=== PATIENT | male | born 2000 | race Two or more races ===

== ENCOUNTER 2021-05-05 05:10 | Emergency (ER) | payer OTHER ==
[~2021-05-05] VITALS: Ht 165.1 cm; Wt 2.4 kg
[2021-05-05] MEDS ORDERED: ACCU-CHEK COMFORT CURVE STRIP VI ONE (05:45)
[2021-05-05] MEDS ORDERED: MIDAZOLAM HCL 2MG/2ML 2ml VIAL (1mg/ml) IM ONE (06:15)
[2021-05-05 07:00] LABS: Basophils # (auto) 0.1 10 ^3/uL (0-0.2); Basophils % (auto) 0.7 % (0.0-2.0); Eosinophils # (auto) 0 10 ^3/uL (0-0.8); Eosinophils % (auto) 0.1 % (0.0-7.0); Hematocrit 45.5 % (41.0-53.0); Hemoglobin 15.7 g/dL (13.5-17.5); Lymphocytes # (auto) 0.8 10 ^3/uL (0.4-5.4); Lymphocytes % (auto) 5.9 % (10.0-50.0); Mean Corpuscular Hemoglobin 30.5 pg (28.0-32.0); Mean Corpuscular Hgb Conc. 34.6 g/dL (32.0-36.0); Mean Corpuscular Volume 88.1 fL (80.0-100.0); Monocytes # (auto) 0.6 10 ^3/uL (0-1.3); Monocytes % (auto) 4.3 % (0.0-12.0); Neutrophils # (auto) 12.7 10 ^3/uL (1.6-8.6); Red Blood Cells 5.16 10^6/uL (4.5-5.90); Red Cell Distribution Width 12.9 % (11.8-14.3); White Blood Cell 14.3 10^3/uL (4.4-10.8)
[2021-05-05 07:28] LABS: Calcium 8.4 mg/dL (8.5-10.1); Potassium 3.9 mmol/L (3.5-5.1)
[2021-05-05 07:32] LABS: BUN/Creatinine Ratio 10.4; Bilirubin, Total 0.4 mg/dL (0.2-1.0); Total Protein 7.8 g/dL (6.4-8.2)
[2021-05-05] MEDS ORDERED: SODIUM CHLORIDE 0.9% 1,000 ML IV ONE ×3 (07:45→17:30)
[2021-05-05 08:43] LABS: Lactic Acid w/Reflex 2.5 mmol/L (0.4-2.0)
[2021-05-05] MEDS ORDERED: ONDANSETRON HCL 4 MG/2 ML VIAL IV ONE (09:30)
[2021-05-05 10:16] LABS: Amphetamine Screen, Urine NEGATIVE (NEGATIVE); Barbiturate Scree,Urine NEGATIVE (NEGATIVE); Benzodiazephine Screen, Urine POSITIVE (NEGATIVE); Cannabinoid Screen, Urine POSITIVE (NEGATIVE); Cocaine Screen, Urine POSITIVE (NEGATIVE)
[2021-05-05 10:24] LABS: Opiate Scree,Urine NEGATIVE (NEGATIVE); Phencyclidine Screen, Urine NEGATIVE (NEGATIVE)
[2021-05-05 10:36] LABS: Urine Bacteria NONE SEEN /hpf (None Seen); Urine Blood Negative /uL (Negative); Urine Mucus FEW (None Seen); Urine Specific Gravity 1.008 (1.001-1.035); Urine WBC 3 /hpf (0 - 3)
[2021-05-05 19:00] VITALS: BP 128/75
== END 2021-05-05 19:47 | disposition left against medical advice (07) ==
LOC: EDBD 05:10 → ER 05:10
DX: R41.82 Altered mental status, unspecified (principal); F10.10 Alcohol abuse, uncomplicated; R93.89 Abnormal findings on diagnostic imaging of other specified body structures; F19.10 Other psychoactive substance abuse, uncomplicated; M54.2 Cervicalgia; Z20.822 Contact with and (suspected) exposure to COVID-19
CPT/HCPCS: 36415; 71045; 72125; 80053; 80307; 80320; 81001; 82550; 82553; 83605; 85025; 87426; 93005; 96361; 96372; 96374; 99285; J2250; J2405; J7030

== ENCOUNTER 2021-05-13 15:59 | Emergency (ER) | payer OTHER ==
[~2021-05-13] VITALS: Ht 175.3 cm; Wt 90.7 kg
[2021-05-13 17:03] VITALS: BP 132/58
[2021-05-13] MEDS ORDERED: METH750T22 PO (17:06)
[2021-05-13] MEDS ORDERED: IBUP800T27 PO (17:06)
== END 2021-05-13 17:21 | disposition home or self-care (01) ==
LOC: ER 15:59
DX: S16.1XXA Strain of muscle, fascia and tendon at neck level, initial encounter (principal); M43.12 Spondylolisthesis, cervical region; Z79.1 Long term (current) use of non-steroidal anti-inflammatories (NSAID); Z79.899 Other long term (current) drug therapy; X58.XXXA Exposure to other specified factors, initial encounter; Y93.89 Activity, other specified; Y92.89 Other specified places as the place of occurrence of the external cause; Y99.8 Other external cause status

== ENCOUNTER 2021-11-13 10:09 | Emergency (ER) | payer OTHER ==
[~2021-11-13] VITALS: Ht 175.3 cm; Wt 95.0 kg
[~2021-11-13 10:09] MED LIST: IBUP800T27 PO; METH750T22 PO
[2021-11-13 11:47] VITALS: BP 123/79
[2021-11-13] MEDS ORDERED: ACET-1158 PO (11:53)
[2021-11-13] MEDS ORDERED: AMOX-277 PO (11:53)
== END 2021-11-13 12:22 | disposition home or self-care (01) ==
LOC: ER 10:09
DX: J06.9 Acute upper respiratory infection, unspecified (principal); R04.0 Epistaxis; Z20.822 Contact with and (suspected) exposure to COVID-19
CPT/HCPCS: 36415; 71045

== ENCOUNTER 2023-10-16 10:14 | Emergency (ER) | payer OTHER ==
[~2023-10-16] VITALS: Ht 177.8 cm; Wt 72.7 kg
[~2023-10-16 10:14] MED LIST changes: +ACET500T58 PO; +AMOX875T4 PO; +IBUP-1456 PO; -IBUP800T27 PO; +METH-1182 PO; -METH750T22 PO
[2023-10-16 11:17] LABS: Urine Bacteria None Seen /hpf (None Seen)
[2023-10-16 11:27] LABS: Basophils # (auto) 0 10 ^3/uL (0-0.2); Eosinophils # (auto) 0 10 ^3/uL (0-0.8); Monocytes # (auto) 1.6 10 ^3/uL (0-1.3); Neutrophils # (auto) 11.4 10 ^3/uL (1.6-8.6); White Blood Cell 14.6 10^3/uL (4.4-10.8)
[2023-10-16 11:32] LABS: Basophils % (auto) 0.3 % (0.0-2.0); Hematocrit 51.8 % (41.0-53.0); Hemoglobin 18.2 g/dL (13.5-17.5); Lymphocytes # (auto) 1.6 10 ^3/uL (0.4-5.4); Lymphocytes % (auto) 11.1 % (10.0-50.0); Mean Corpuscular Hemoglobin 31.5 pg (28.0-32.0); Mean Corpuscular Hgb Conc. 35.1 g/dL (32.0-36.0); Mean Corpuscular Volume 89.8 fL (80.0-100.0); Monocytes % (auto) 10.6 % (0.0-12.0); Nucleated Red Blood Cells % 0.1 %; Platelet Count (auto) 176 10^3/uL (140-450); Red Blood Cells 5.77 10^6/uL (4.5-5.90); Red Cell Distribution Width 13.4 % (11.8-14.3)
[2023-10-16 11:45] LABS: Alanine Aminotransferase 25 U/L (7-40); Anion Gap 10 (5-15); Aspartate Aminotransferase 39 U/L (13-40); BUN/Creatinine Ratio 9.8 (10.0-20.0); Bilirubin, Total 2.1 mg/dL (0.2-1.0); Blood Alcohol 3.2 mg/dL (<10); Blood Urea Nitrogen 10 mg/dL (9-23); Calcium 10.4 mg/dL (8.7-10.4); Carbon Dioxide 23 mmol/L (20-30); Chloride 106 mmol/L (98-107); Creatine Kinase IFCC 1064 U/L (46-171); Glucose 114 mg/dL (74-106); Potassium 3.7 mmol/L (3.5-5.1); Sodium 139 mmol/L (136-145); Total Protein 8.4 g/dL (5.7-8.2)
[2023-10-16 11:47] LABS: Salicylate < 3.0 mg/dL (2.8-20.0)
[2023-10-16 11:48] LABS: Alkaline Phosphatase 104 U/L (46-116)
[2023-10-16] MEDS: SODIUM CHLORIDE 0.9% 1,000 ML IV ONE ×4 (11:50→21:00)
[2023-10-16 11:58] LABS: Urine Blood Negative /uL (Negative); Urine Clarity Turbid (Clear); Urine Color Dark-Yellow (Yellow); Urine Hyaline Cast FEW /lpf (0 - 2); Urine Mucus MODERATE (None Seen); Urine Protein, UAD 2+ (Negative); Urine Specific Gravity 1.039 (1.001-1.035); Urine Urobilinogen 8 mg/dL (Negative); Urine WBC 2 /hpf (0 - 3)
[2023-10-16 12:00] VITALS: PULSE 79; RESP 16; O2SAT 97
[2023-10-16 12:02] LABS: Amphetamine Screen, Urine Neg (NEGATIVE)
[2023-10-16 12:03] LABS: Barbiturate Scree,Urine Neg (NEGATIVE); Benzodiazephine Screen, Urine Neg (NEGATIVE); Cocaine Screen, Urine Neg (NEGATIVE); Opiate Scree,Urine Neg (NEGATIVE)
[2023-10-16 12:04] LABS: Cannabinoid Screen, Urine Neg (NEGATIVE); Phencyclidine Screen, Urine Neg (NEGATIVE)
[2023-10-16 12:06] LABS: Acetaminophen < 2.0 UG/ML (10.0-20.0)
[2023-10-17 00:01] LABS: Basophils # (auto) 0 10 ^3/uL (0-0.2); Basophils % (auto) 0.5 % (0.0-2.0); Eosinophils # (auto) 0.1 10 ^3/uL (0-0.8); Hematocrit 44.3 % (41.0-53.0); Hemoglobin 15.4 g/dL (13.5-17.5); Lymphocytes # (auto) 1.4 10 ^3/uL (0.4-5.4); Lymphocytes % (auto) 18.7 % (10.0-50.0); Mean Corpuscular Hemoglobin 31.7 pg (28.0-32.0); Mean Corpuscular Hgb Conc. 34.8 g/dL (32.0-36.0); Mean Corpuscular Volume 90.9 fL (80.0-100.0); Monocytes # (auto) 0.7 10 ^3/uL (0-1.3); Monocytes % (auto) 9.7 % (0.0-12.0); Neutrophils # (auto) 5.4 10 ^3/uL (1.6-8.6); Neutrophils % (auto) 70.1 % (37.0-80.0); Nucleated Red Blood Cells % 0.1 %; Platelet Count (auto) 139 10^3/uL (140-450); Red Blood Cells 4.87 10^6/uL (4.5-5.90); Red Cell Distribution Width 13.6 % (11.8-14.3); White Blood Cell 7.7 10^3/uL (4.4-10.8)
[2023-10-17 08:00] VITALS: PULSE 83; RESP 14; O2SAT 98
[2023-10-17] MEDS ORDERED: traZODone HCL 50 MG TAB PO PRN ×2 (13:00→13:15)
[2023-10-17] MEDS ORDERED: traZODone HCL 50 MG TAB PO ONE (13:00)
[2023-10-17] MEDS ORDERED: buPROPion HCL 100 MG TAB PO ONE (13:00)
[2023-10-17] MEDS: buPROPion HCL 100 MG TAB PO ONE (13:47)
[2023-10-17 19:30] VITALS: PULSE 79; RESP 13; O2SAT 100
[2023-10-17 22:33] VITALS: BP 109/62; PULSE 77; RESP 16; TEMP 98.6; O2SAT 98
[2023-10-18] MEDS ORDERED: buPROPion HCL 100 MG TAB PO ONE (09:00)
== END 2023-10-17 22:51 | disposition short-term general hospital (02) ==
LOC: EDBD 10:14 → ER 10:14
DX: R45.851 Suicidal ideations (principal); M62.82 Rhabdomyolysis
CPT/HCPCS: 36415; 71045; 80053; 80307; 80320; 80329; 81001; 82550; 83605; 83735; 85025; 96360; 96361; 99285; J7030; 99291